=== PATIENT | female | born 1985 | race Caucasian/White ===

== ENCOUNTER 2016-11-30 17:51 | Emergency (ER) | payer SELFPAY ==
[2016-11-30 17:56] VITALS: BP 105/66; PULSE 78; RESP 16; TEMP 97.7; O2SAT 98
--- NOTE | 2016-11-30 18:08 | EDPHY ---
HPI/HX/ROS/PE/MDM Narrative: CHIEF COMPLAINT: "I've felt randomly short of breath" HPI: The patient is a 31 y/o female, with a history of anxiety, arriving with her friend at the referral of urgent care complaining of intermittent dyspnea for the past few days. She describes short episodes of feeling short of breath while at work or when trying to fall asleep. These last for about 1 minute each time and are difficult for her to describe. She says, "they kind feel like I'm hyperventilating" and can be associated with lightheadedness. She denies chest pain and all symptoms resolve spontaneously. When the episodes occur, she becomes anxious that she "might ," which seems to exacerbate her symptoms. However, she was able to hike on Wednesday, 2 days ago, without any symptoms. She has a history of panic disorder since she was a child, but these episodes feel slightly different to her so she has not tried taking her anxiety medication when symptoms are present. She does say, "I thought it was some kind of weird panic attack, but it kept happening." She denies history of blood clots or respiratory diseases. REVIEW OF SYSTEMS: Aside from elements discussed in the HPI, a comprehensive 10-point review of systems was reviewed and is negative. PMH: Anxiety, ADHD SOCIAL HISTORY: Friend at bedside. No PCP. PHYSICAL EXAM: General:Patient is alert, in no acute distress. ENT:Eyes are normal to inspection. ENT inspection normal. Neck: Normal inspection. Full range of motion. Respiratory:No respiratory distress. Breath sounds normal bilaterally. Cardiovascular: Regular rate and rhythm. Strong peripheral pulses. Normal cap refill. Abdomen:The abdomen is nontender to palpation. There are no peritoneal signs. Back: Normal to inspection. No tenderness to palpation. Skin: Normal color. No rash. Warm and dry. Extremities: Normal appearance. Full range of motion. Neuro: Oriented x3. Normal motor function. Normal sensory function. ED Course: This is a healthy 31 y/o female with a history of anxiety who presents with a 4- day history of short episodes of dyspnea. She has no associated chest pain, near -syncope, or other symptoms during these events. Her exam is unremarkable. We discussed the benefits and risks of different interventions. Because her symptoms are short-lived, not associated with pain, and feel somewhat similar to her panic attacks, we mutually decided to only pursue an EKG rather than chest x-ray and lab work at this time. The 12 lead EKG was interpreted by myself. EKG shows normal sinus rhythm. See hard copy and/or "tracemaster" electronic copy for interpretation. I reassessed patient and discussed EKG results with the patient and answered all her questions. She continues to refuse all additional testing. Her exam remains benign. I recommended using her anxiety medication when these episodes occur to see if the medication improves her symptoms. I've also referred her to a PCP for follow up if needed. Return precautions given. She is comfortable with this plan. General Time Seen by Provider: 11/30/16 17:59 Initial Vital Signs: Initial Vital Signs Temperature (C) 36.5 C 11/30/16 17:52 Heart Rate 78 11/30/16 17:52 Respiratory Rate 16 11/30/16 17:52 Blood Pressure 105/66 11/30/16 17:52 O2 Sat (%) 98 11/30/16 17:52 O2 Delivery Mode Room Air Allergies/Adverse Reactions: No Known Allergies Allergy (Unverified 11/30/16 17:56) Home Medications: Medication Instructions Recorded Dextroamphetamine/Amphetamine 12.5 mg PO 11/30/16 [Adderall 12.5 mg Tablet] clonazePAM [Klonopin (*)] 0.5 mg PO 11/30/16 Departure - Departure Disposition: Home, Routine, Self-Care Clinical Impression: Anxiety Dyspnea Qualifiers: Dyspnea type: shortness of breath Qualified Code(s): R06.02 - Shortness of breath Condition: Good Instructions: Dyspnea (ED), Anxiety (ED) Additional Instructions: 1. Use your anxiety medication as prescribed when symptoms are present. 2. Follow up with your primary care provider in 2-3 days for unimproved symptoms. 3. Return to the ED for fainting, chest pain, prolonged shortness of breath, or other worsening of condition. Referrals: NONE *PRIMARY CARE P,. [Primary Care Provider] - As per Instructions [facility],. [Clinic] - As per Instructions Report Scribed for: Hema Flannery Report Scribed by: Oliva Sue Date of Report: 11/30/16 Time of Report: 18:00 Physician Review and Approval Statement: Portions of this note were transcribed by an ED scribe. I personally performed the history, physical exam, and medical decision making; and confirm the accuracy of the information in the transcribed note.
--- NOTE | 2016-11-30 18:32 | CPEKG ---
Heart Rate: 64 RR Interval: 938 P-R Interval: 132 QRSD Interval: 82 QT Interval: 420 QTC Interval: 434 P [place]: 74 QRS [place]: 72 T Wave [place]: 59 EKG Severity - BORDERLINE ECG - EKG Impression: SINUS RHYTHM EKG Impression: Short [place] interval Electronically Signed By: Gus Pina 01-Dec-2016 18:37:26
== END 2016-11-30 18:50 | disposition home or self-care (01) ==
DX: F41.9 Anxiety disorder, unspecified (principal)